=== PATIENT | female | born 1995 | race American Indian/Alaskan Native ===

== ENCOUNTER 2019-11-18 13:08 | Inpatient (IN) | payer MEDICAID ==
[2019-11-18] MEDS ORDERED: LACTATED RINGERS 1,000 ML ONE (14:09)
[2019-11-18] MEDS ORDERED: MINERAL OIL 30 ML ORAL LIQD PO PRN (15:05)
[2019-11-18] MEDS ORDERED: ePHEDrine SULFATE 50 MG/1 ML INJ IV PRN (15:05)
[2019-11-18] MEDS ORDERED: TERBUTALINE 1 MG/1 ML INJ SUB-Q PRN (15:05)
[2019-11-18] MEDS ORDERED: NALOXONE 0.4 MG/1 ML INJ IV PRN (15:05)
[2019-11-18] MEDS ORDERED: BUTORPHANOL 2 MG/1 ML INJ IV PRN ×2 (15:05)
[2019-11-18] MEDS ORDERED: LIDOCAINE (2%) 20 MG/1 ML VIAL 20 ML MDV INFILTRATI ONE (15:05)
[2019-11-18] MEDS ORDERED: TERBUTALINE 1 MG/1 ML INJ IVP PRN (15:05)
[2019-11-18] MEDS ORDERED: PROMETHAZINE 25 MG TAB PO PRN (15:05)
[2019-11-18] MEDS ORDERED: fentaNYL 100 MCG/2 ML INJ IV PRN (15:05)
[2019-11-18 15:24] LABS: Hematocrit 30.8 % (30.3-42.9); Hemoglobin 9.8 gm/dl (10.1-14.3); Mean Corpuscular HGB Conc 32 % (30-34); Mean Corpuscular Volume 80 fl (79-97); Platelet Count 183 K/mm3 (140-440); Red Blood Count 3.86 M/mm3 (3.65-5.03); Red Cell Distribution Width 14.5 % (13.2-15.2)
[2019-11-18 15:40] LABS: BUN/Creatinine Ratio 13; Blood Urea Nitrogen 8 mg/dL (7-17); Calcium 8.8 mg/dL (8.4-10.2); Hemolysis Index 26
[2019-11-18] MEDS ORDERED: MAGNESIUM SULFATE 4 GM/100 ML BAG IV ONE ×2 (15:46→18:09)
[2019-11-18] MEDS ORDERED: CALCIUM GLUCONATE 1000 MG/10 ML INJ IV ONE (15:46)
[2019-11-18] MEDS ORDERED: LACTATED RINGERS 1,000 ML IV SCH ×2 (16:00)
[2019-11-18] MEDS ORDERED: OXYTOCIN 20 UNIT/1000ML DRIP 20 UNITS/1,000 ML BAG IV SCH (16:00)
[2019-11-18] MEDS ORDERED: miSOPROStol 25 MCG TAB PO ONE (16:25)
--- NOTE | 2019-11-18 17:36 | History and Physical Report ---
History of Present Illness Date of examination: 11/18/19 Date of admission: 11/18/19 Chief complaint: High blood pressure History of present illness: Pt is a 24 yo at 38w0d EGA who presents from [facility] for elevated BP in the office. She reports positive movement, nausea last night, and denies LOF, bleeding, or contractions. She also denies CONDE, scotomata, RUQ pain. She has received care with [facility]. course has been complicated by obesity, HSV-2 with valtrex suppressive therapy, palpitations, pelvic mass with planned surgery , and trichomonas with negative test of cure. She is GBS negative. Past History Past Medical History: other (ovarian cyst) Past Surgical History: no surgical history [employer] History: trichomonas (negative test of cure this ) Family/Genetic History: diabetes Social history: no significant social history - Obstetrical History Expected Date of Delivery: 12/02/19 Actual Gestation: 38 Week(s) 0 Day(s) : 1 Para: 0 Number of Living Children: 0 Medications and Allergies Allergies Allergy/AdvReac Type Severity Reaction Status Date / Time No Known Allergies Allergy Unverified 11/18/19 14:05 Home Medications Medication Instructions Recorded Confirmed Last Taken Type No Known Home Medications [No 11/18/19 11/18/19 Unknown History Reported Home Medications] Active Meds: Active Medications Butorphanol Tartrate (Stadol) 1 mg IV Q2H PRN PRN Reason: Pain, Moderate(4-6) LABOR PAIN Butorphanol Tartrate (Stadol) 2 mg IV Q2H PRN PRN Reason: Pain , Severe (7-10) Ephedrine Sulfate (Ephedrine Sulfate) 10 mg IV Q2M PRN PRN Reason: Hypotension Fentanyl (Sublimaze) 100 mcg IV Q2H PRN PRN Reason: Pain,Severe (7-10) LABOR PAIN Hydralazine HCl (Apresoline) 5 mg IV Q30MIN PRN PRN Reason: HTN SYS>170 OR JOMAR>110 Oxytocin/Sodium Chloride (Pitocin/Ns 20 Unit/1000ml Drip) 20 units in 1,000 mls @ 125 mls/hr IV DIRECT IAN Lactated Ringer's (Lactated Ringers) 1,000 mls @ 125 mls/hr IV DIRECT IAN Magnesium Sulfate (Magnesium Sulfate 40gm/1000ml) 40 gm in 1,000 mls @ 50 mls/hr IV DIRECT IAN Mineral Oil (Mineral Oil) 30 ml PO QHS PRN PRN Reason: Constipation Naloxone HCl (Naloxone) 0.1 mg IV Q2MIN PRN PRN Reason: Res Rate </= 8 or 02 SAT < 92% Ondansetron HCl (Zofran) 4 mg IV Q8H PRN PRN Reason: Nausea And Vomiting Promethazine HCl (Phenergan) 25 mg PO Q6H PRN PRN Reason: Nausea And Vomiting Terbutaline Sulfate (Brethine) 0.25 mg SUB-Q ONCE PRN PRN Reason: Hyperstimulation/Hypertonicity Terbutaline Sulfate (Brethine) 0.25 mg IVP ONCE PRN PRN Reason: Hyperstimulation/Hypertonicity Review of Systems Genitourinary: no vaginal bleeding, no leakage of fluid, no genital sores, no contractions - Vital Signs Vital signs: Vital Signs Pulse BP 106 H 139/75 11/18/19 13:53 11/18/19 13:53 Temp Pulse Resp BP Pulse Ox 98.3 F 87 20 174/102 99 11/18/19 14:06 11/18/19 17:30 11/18/19 14:06 11/18/19 17:23 11/18/19 17:30 - Physical Exam Lungs: Positive: Normal air movement Abdomen: Positive: soft Uterus: Positive: enlarged (gravid) - Obstetrical FHR: category 1 Uterine Contraction Monitor Mode: External Cervical Dilatation: 2.5 (per RN) Cervical Effacement Percentage: 50 station: -3 Results Result Diagrams: 11/18/19 14:30 11/18/19 14:30 Abnormal lab results 11/18/19 11/18/19 Range/Units 14:30 14:30 Hgb 9.8 L (10.1-14.3) gm/dl MCH 25 L (28-32) pg Creatinine 0.6 L (0.7-1.2) mg/dL All other labs normal. Assessment and Plan A: 24 yo at 38w0d EGA Preeclampsia with severe features Pelvic mass, cleared for vaginal by [facility] HSV-2 without lesion or prodrome Trichomonas this with negative test of cure GBS negative Membranes intact Palpitations P: Admit to L&D Initiate IOL- Cytotec Magnesium sulfate Rescue Hydralazine PRN EKG Anticipate
[2019-11-18] MEDS: hydrALAZINE 20 MG/1 ML INJ IV PRN ×2 (17:57→18:23)
[2019-11-18] MEDS: MAGNESIUM SULFATE 40GM/1000ML 40 GM/1,000 ML BAG IV SCH (18:46)
[2019-11-18] MEDS: LACTATED RINGERS 1,000 ML IV SCH (19:09)
[2019-11-18] MEDS: ONDANSETRON 4 MG/2 ML INJ IV PRN (23:02)
[2019-11-19] MEDS ORDERED: ePHEDrine SULFATE 50 MG/1 ML INJ IV PRN (01:29)
[2019-11-19] MEDS ORDERED: NALOXONE 2 MG/2 ML INJ IV PRN (01:29)
[2019-11-19] MEDS: LACTATED RINGERS 1,000 ML IV SCH (01:36)
--- NOTE | 2019-11-19 01:46 | Anesthesia Consultation ---
Anesthesia Consult and Med Hx Date of service: 11/19/19 - Airway Anesthetic Teeth Evaluation: Good ROM Head & Neck: Adequate Mental/Hyoid Distance: Adequate Mallampati Class: Class II Intubation Access Assessment: Probably Good - Pulmonary Exam CTA: Yes - Cardiac Exam Cardiac Exam: RRR - Pre-Operative Health Status ASA Pre-Surgery Classification: ASA3 Proposed Anesthetic Plan: Epidural - Pulmonary Hx Asthma: No COPD: No Hx Pneumonia: No - Cardiovascular System Hx Hypertension: Yes - Central Nervous System Hx Seizures: No Hx Psychiatric Problems: No - Endocrine Hx Renal Disease: No Hx End Stage Renal Disease: No Hx Hypothyroidism: No Hx Hyperthyroidism: No - Hematic Hx Anemia: No Hx Sickle Cell Disease: No - Other Systems Hx Alcohol Use: Yes (RARELY) Hx Obesity: Yes
--- NOTE | 2019-11-19 01:47 | Progress Note ---
Labor Epidural - Labor Epidural Start Time: 01:30 Stop Time: :40 Performed by:: YIFAN HICKEY Procedure: Patient is requesting epidural for labor pain. H&P, and labs reviewed. Procedure explained, questions answered, consent obtained. Patient in sitting position with blood pressure cuff and pulse ox on and working. Timeout performed immediately before start of procedure. Sterile betadine prep/drape. 3 mL 1% lidocaine skin wheal at L[3]-L[4]. 18-gauge Touhy epidural needle advanced to [id number] with saline at 9 cm. 27-gauge spinal needle advanced until clear, free-flowing CSF. Intrathecal dexmedetomidine [5] mcg administered and needle removed. Epidural catheter advanced to 15 cm, negative aspiration for blood and csf, negative test dose 3 ml 1.5% lidocaine with epinephrine. Sterile steri-strips and tegaderm applied, followed by tape reinforcement. Patient tolerated procedure well.
[2019-11-19] MEDS: fentaNYL-BUPIV 2 MCG/ML-0.125% 200 MCG/100 ML BAG EPIDURAL SCH ×2 (02:18→09:46)
[2019-11-19] MEDS ORDERED: OXYTOCIN DRIP 30 UNITS/500 ML BAG IV SCH (08:00)
[2019-11-19] MEDS ORDERED: hydrOXYzine PAMOATE 25 MG CAP PO PRN (08:28)
--- NOTE | 2019-11-19 08:33 | Ultrasound Report ---
US OB limited INDICATION / CLINICAL INFORMATION: Presentation check. COMPARISON: None available. FINDINGS: Transabdominal imaging was performed. The alignment is cephalic. heart rate is 129. IMPRESSION: 1. lie is cephalic. Signer Name: Nate Robles MD Signed: 11/19/2019 8:28 AM Workstation Name: [id number]
--- NOTE | 2019-11-19 08:43 | Progress Note ---
Assessment and Plan A: 24 yo at 38w1d EGA Preeclampsia with severe features Pelvic mass, cleared for vaginal by [facility] HSV-2 without lesion or prodrome Trichomonas this with negative test of cure GBS negative Membranes intact Palpitations Cephalic by ultrasound P: Continue IOL, initiate Pitocin continue Magnesium sulfate Rescue Hydralazine PRN Anticipate Subjective - Subjective Date of service: 11/19/19 Principal diagnosis: Preeclampsia with severe features, IUP at term Interval history: HD2 of IOL. Pt is on Mag sulfate, s/p Cytotec, has epidural anesthesia. Patient reports: no loss of fluid, no vaginal bleeding Objective - Vital Signs Vital Signs: Vital Signs - 12hr 11/18/19 11/18/19 11/18/19 20:42 20:47 20:52 Temperature Pulse Rate 104 H 106 H 108 H Respiratory Rate Blood Pressure O2 Sat by Pulse 100 99 98 Oximetry 11/18/19 11/18/19 11/18/19 20:54 20:58 21:03 Temperature Pulse Rate 107 H 108 H 107 H Respiratory Rate Blood Pressure 154/83 O2 Sat by Pulse 98 100 Oximetry 11/18/19 11/18/19 11/18/19 21:08 21:13 21:18 Temperature Pulse Rate 109 H 104 H 108 H Respiratory Rate Blood Pressure O2 Sat by Pulse 99 100 99 Oximetry 11/18/19 11/18/19 11/18/19 21:21 21:23 21:28 Temperature Pulse Rate 112 H 107 H 111 H Respiratory Rate Blood Pressure 172/92 161/84 O2 Sat by Pulse 91 98 96 Oximetry 11/18/19 11/18/19 11/18/19 21:33 21:34 21:38 Temperature Pulse Rate 104 H 105 H Respiratory Rate Blood Pressure O2 Sat by Pulse 100 90 98 Oximetry 11/18/19 11/18/19 11/18/19 21:43 21:47 21:48 Temperature Pulse Rate 101 H 120 H 108 H Respiratory Rate Blood Pressure O2 Sat by Pulse 98 89 99 Oximetry 11/18/19 11/18/19 11/18/19 21:51 21:53 21:58 Temperature Pulse Rate 105 H 104 H 99 H Respiratory Rate Blood Pressure 143/87 O2 Sat by Pulse 100 98 Oximetry 11/18/19 11/18/19 11/18/19 22:04 22:09 22:14 Temperature Pulse Rate 119 H 106 H 102 H Respiratory Rate Blood Pressure O2 Sat by Pulse 98 98 99 Oximetry 11/18/19 11/18/19 11/18/19 22:19 22:22 22:24 Temperature Pulse Rate 102 H 98 H 101 H Respiratory Rate Blood Pressure 158/79 O2 Sat by Pulse 95 98 Oximetry 11/18/19 11/18/19 11/18/19 22:29 22:34 22:39 Temperature Pulse Rate 98 H 102 H 96 H Respiratory Rate Blood Pressure O2 Sat by Pulse 98 99 100 Oximetry 11/18/19 11/18/19 11/18/19 22:44 22:49 22:53 Temperature Pulse Rate 95 H 101 H 93 H Respiratory Rate Blood Pressure 141/77 O2 Sat by Pulse 99 100 Oximetry 11/18/19 11/18/19 11/18/19 22:54 22:59 23:04 Temperature Pulse Rate 104 H 97 H 101 H Respiratory Rate Blood Pressure O2 Sat by Pulse 100 99 97 Oximetry 11/18/19 11/18/19 11/18/19 23:09 23:11 23:14 Temperature Pulse Rate 103 H 107 H 103 H Respiratory Rate Blood Pressure O2 Sat by Pulse 96 91 92 Oximetry 11/18/19 11/18/19 11/18/19 23:16 23:19 23:22 Temperature Pulse Rate 109 H 102 H 101 H Respiratory Rate Blood Pressure 140/76 O2 Sat by Pulse 94 96 Oximetry 11/18/19 11/18/19 11/18/19 23:24 23:29 23:34 Temperature Pulse Rate 101 H 103 H 101 H Respiratory Rate Blood Pressure O2 Sat by Pulse 96 95 96 Oximetry 11/18/19 11/18/19 11/18/19 23:39 23:44 23:49 Temperature Pulse Rate 105 H 101 H 104 H Respiratory Rate Blood Pressure O2 Sat by Pulse 98 97 98 Oximetry 11/18/19 11/18/19 11/18/19 23:51 23:54 23:59 Temperature Pulse Rate 104 H 109 H 108 H Respiratory Rate Blood Pressure 140/71 O2 Sat by Pulse 98 98 Oximetry 11/19/19 11/19/19 11/19/19 00:04 00:09 00:14 Temperature Pulse Rate 93 H 106 H 100 H Respiratory Rate Blood Pressure O2 Sat by Pulse 99 97 96 Oximetry 11/19/19 11/19/19 11/19/19 00:19 00:21 00:24 Temperature Pulse Rate 98 H 96 H 97 H Respiratory Rate Blood Pressure 138/71 O2 Sat by Pulse 97 97 Oximetry 11/19/19 11/19/19 11/19/19 00:29 00:34 00:40 Temperature Pulse Rate 99 H 98 H 110 H Respiratory Rate Blood Pressure O2 Sat by Pulse 97 96 99 Oximetry 11/19/19 11/19/19 11/19/19 00:45 00:50 00:51 Temperature Pulse Rate 101 H 100 H 100 H Respiratory Rate Blood Pressure 133/75 O2 Sat by Pulse 97 96 Oximetry 11/19/19 11/19/19 11/19/19 00:55 01:00 01:05 Temperature 98.1 F Pulse Rate 103 H 101 H 101 H Respiratory 18 Rate Blood Pressure O2 Sat by Pulse 99 96 96 Oximetry 11/19/19 11/19/19 11/19/19 01:10 01:15 01:20 Temperature Pulse Rate 103 H 97 H 110 H Respiratory Rate Blood Pressure O2 Sat by Pulse 97 98 96 Oximetry 11/19/19 11/19/19 11/19/19 01:22 01:25 01:30 Temperature Pulse Rate 105 H 109 H 127 H Respiratory Rate Blood Pressure 162/77 O2 Sat by Pulse 98 99 Oximetry 11/19/19 11/19/19 11/19/19 01:35 01:38 01:40 Temperature Pulse Rate 105 H 76 71 Respiratory Rate Blood Pressure 173/72 174/73 O2 Sat by Pulse 97 98 Oximetry 11/19/19 11/19/19 11/19/19 01:42 01:44 01:45 Temperature Pulse Rate 83 89 Respiratory Rate Blood Pressure 184/77 171/68 O2 Sat by Pulse 98 Oximetry 11/19/19 11/19/19 11/19/19 01:46 01:48 01:50 Temperature Pulse Rate 88 85 95 H Respiratory Rate Blood Pressure 161/66 148/64 160/67 O2 Sat by Pulse 97 Oximetry 11/19/19 11/19/19 11/19/19 01:52 01:55 02:00 Temperature Pulse Rate 81 140 H 79 Respiratory Rate Blood Pressure 101/55 O2 Sat by Pulse 94 95 99 Oximetry 11/19/19 11/19/19 11/19/19 02:05 02:08 02:10 Temperature Pulse Rate 77 85 83 Respiratory Rate Blood Pressure 133/58 O2 Sat by Pulse 97 100 Oximetry 11/19/19 11/19/19 11/19/19 02:15 02:18 02:20 Temperature Pulse Rate 85 74 Respiratory 18 Rate Blood Pressure O2 Sat by Pulse 100 100 Oximetry 11/19/19 11/19/19 11/19/19 02:23 02:25 02:30 Temperature Pulse Rate 78 83 82 Respiratory Rate Blood Pressure 142/63 O2 Sat by Pulse 100 100 Oximetry 11/19/19 11/19/19 11/19/19 02:35 02:37 02:40 Temperature Pulse Rate 80 76 81 Respiratory Rate Blood Pressure 132/61 O2 Sat by Pulse 100 99 Oximetry 11/19/19 11/19/19 11/19/19 02:45 02:50 02:53 Temperature Pulse Rate 77 75 82 Respiratory Rate Blood Pressure 139/60 O2 Sat by Pulse 99 100 Oximetry 11/19/19 11/19/19 11/19/19 02:55 03:00 03:05 Temperature Pulse Rate 84 86 94 H Respiratory Rate Blood Pressure O2 Sat by Pulse 100 100 100 Oximetry 11/19/19 11/19/19 11/19/19 03:08 03:10 03:15 Temperature Pulse Rate 81 82 95 H Respiratory Rate Blood Pressure 160/77 O2 Sat by Pulse 100 100 Oximetry 11/19/19 11/19/19 11/19/19 03:20 03:23 03:25 Temperature Pulse Rate 83 89 89 Respiratory Rate Blood Pressure 140/84 O2 Sat by Pulse 100 100 Oximetry 11/19/19 11/19/19 11/19/19 03:30 03:35 03:38 Temperature Pulse Rate 91 H 83 85 Respiratory Rate Blood Pressure 144/69 O2 Sat by Pulse 100 98 Oximetry 11/19/19 11/19/19 11/19/19 03:40 03:45 03:50 Temperature Pulse Rate 90 92 H 90 Respiratory Rate Blood Pressure O2 Sat by Pulse 99 99 99 Oximetry 11/19/19 11/19/19 11/19/19 03:53 03:55 04:00 Temperature Pulse Rate 96 H 94 H 107 H Respiratory Rate Blood Pressure O2 Sat by Pulse 93 99 100 Oximetry 11/19/19 11/19/19 11/19/19 04:05 04:06 04:11 Temperature 98.3 F Pulse Rate 109 H 100 H 104 H Respiratory 18 Rate Blood Pressure 123/56 O2 Sat by Pulse 95 99 Oximetry 11/19/19 11/19/19 11/19/19 04:14 04:16 04:21 Temperature Pulse Rate 112 H 109 H 105 H Respiratory Rate Blood Pressure O2 Sat by Pulse 94 99 98 Oximetry 11/19/19 11/19/19 11/19/19 04:26 04:33 04:38 Temperature Pulse Rate 107 H 114 H 110 H Respiratory Rate Blood Pressure 131/74 O2 Sat by Pulse 98 96 97 Oximetry 11/19/19 11/19/19 11/19/19 04:39 04:43 04:48 Temperature Pulse Rate 110 H 112 H 100 H Respiratory Rate Blood Pressure O2 Sat by Pulse 94 97 97 Oximetry 11/19/19 11/19/19 11/19/19 04:52 04:53 04:58 Temperature Pulse Rate 111 H 112 H 100 H Respiratory Rate Blood Pressure 123/66 O2 Sat by Pulse 98 98 Oximetry 11/19/19 11/19/19 11/19/19 05:01 05:03 05:08 Temperature Pulse Rate 101 H 102 H 100 H Respiratory Rate Blood Pressure O2 Sat by Pulse 89 97 97 Oximetry 11/19/19 11/19/19 11/19/19 05:09 05:13 05:18 Temperature Pulse Rate 99 H 99 H 101 H Respiratory Rate Blood Pressure 125/60 O2 Sat by Pulse 97 97 Oximetry 11/19/19 11/19/19 11/19/19 05:23 05:28 05:33 Temperature Pulse Rate 100 H 101 H 102 H Respiratory Rate Blood Pressure 128/69 O2 Sat by Pulse 97 97 97 Oximetry 11/19/19 11/19/19 11/19/19 05:37 05:38 05:43 Temperature Pulse Rate 108 H 97 H 100 H Respiratory Rate Blood Pressure 131/70 O2 Sat by Pulse 97 96 Oximetry 11/19/19 11/19/19 11/19/19 05:48 05:52 05:53 Temperature Pulse Rate 100 H 102 H 106 H Respiratory Rate Blood Pressure 124/68 O2 Sat by Pulse 96 98 Oximetry 11/19/19 11/19/19 11/19/19 05:58 06:03 06:08 Temperature Pulse Rate 121 H 118 H 130 H Respiratory Rate Blood Pressure O2 Sat by Pulse 98 98 98 Oximetry 11/19/19 11/19/19 11/19/19 06:19 06:22 06:24 Temperature Pulse Rate 120 H 115 H 118 H Respiratory Rate Blood Pressure 138/71 O2 Sat by Pulse 98 97 Oximetry 11/19/19 11/19/19 11/19/19 06:29 06:34 06:37 Temperature Pulse Rate 106 H 102 H 100 H Respiratory Rate Blood Pressure 127/66 O2 Sat by Pulse 97 98 Oximetry 11/19/19 11/19/19 11/19/19 06:39 06:44 06:49 Temperature Pulse Rate 99 H 97 H 106 H Respiratory Rate Blood Pressure O2 Sat by Pulse 98 97 97 Oximetry 11/19/19 11/19/19 11/19/19 06:53 06:54 06:59 Temperature Pulse Rate 108 H 112 H 123 H Respiratory Rate Blood Pressure 133/70 O2 Sat by Pulse 97 99 Oximetry 11/19/19 11/19/19 11/19/19 07:04 07:07 07:09 Temperature Pulse Rate 128 H 110 H 113 H Respiratory Rate Blood Pressure 134/68 O2 Sat by Pulse 99 99 Oximetry 11/19/19 11/19/19 11/19/19 07:14 07:19 07:23 Temperature Pulse Rate 127 H 128 H 111 H Respiratory Rate Blood Pressure 135/77 O2 Sat by Pulse 98 99 Oximetry 11/19/19 11/19/19 11/19/19 07:24 07:29 07:34 Temperature Pulse Rate 122 H 121 H 109 H Respiratory Rate Blood Pressure O2 Sat by Pulse 98 99 98 Oximetry 11/19/19 11/19/19 11/19/19 07:38 07:53 08:07 Temperature Pulse Rate 126 H 101 H 97 H Respiratory Rate Blood Pressure 125/59 133/80 132/75 O2 Sat by Pulse Oximetry 11/19/19 11/19/19 08:22 08:38 Temperature Pulse Rate 99 H 103 H Respiratory Rate Blood Pressure 133/77 145/92 O2 Sat by Pulse Oximetry - Exam FHR: category 1 Uterine Contraction Monitor Mode: External Cervical Dilatation: 4.5 Cervical Effacement Percentage: 80 station: 0 Uterine Contraction Frequency (min): 3-4 Uterine Tone Measurement Phase: Contraction Uterine Contraction Intensity: Moderate - Labs Labs: Abnormal Labs 11/18/19 11/18/19 11/19/19 14:30 14:30 00:39 Hgb 9.8 L MCH 25 L Creatinine 0.6 L Magnesium 4.80 H 11/19/19 06:12 Hgb MCH Creatinine Magnesium 6.40 H Laboratory Results - last 24 hr 11/18/19 11/18/19 11/18/19 14:30 14:30 14:30 WBC 7.4 RBC 3.86 Hgb 9.8 L Hct 30.8 MCV 80 MCH 25 L MCHC 32 RDW 14.5 Plt Count 183 Sodium 138 Potassium 4.2 Chloride 103.8 Carbon Dioxide 24 Anion Gap 14 BUN 8 Creatinine 0.6 L Estimated GFR > 60 BUN/Creatinine Ratio 13 Glucose 97 Uric Acid Calcium 8.8 Magnesium Blood Type A POSITIVE Antibody Screen Negative 11/18/19 11/19/19 11/19/19 14:30 00:39 06:12 WBC RBC Hgb Hct MCV MCH MCHC RDW Plt Count Sodium Potassium Chloride Carbon Dioxide Anion Gap BUN Creatinine Estimated GFR BUN/Creatinine Ratio Glucose Uric Acid 5.3 Calcium Magnesium 4.80 H 6.40 H Blood Type Antibody Screen
[2019-11-19] MEDS: ONDANSETRON 4 MG/2 ML INJ IV PRN (12:38)
--- NOTE | 2019-11-19 13:01 | Event Note ---
Date: 11/19/19 Pt comfortable with epidural. SVE /-1. IUPC and FSE placed, pt tolerated well, FHT category 1. Increase Pitocin by 4mU/min q30min until adequate MVUs. Closely monitor clinical status.
[2019-11-19] MEDS: MAGNESIUM SULFATE 40GM/1000ML 40 GM/1,000 ML BAG IV SCH (14:38)
[2019-11-19] MEDS ORDERED: FAMOTIDINE 20 MG/2 ML INJ IV ONE (16:47)
[2019-11-19] MEDS ORDERED: BICITRA ORAL LIQD 30ML PO ONE (16:47)
[2019-11-19] MEDS ORDERED: METOCLOPRAMIDE 10 MG/2 ML INJ IV ONE (16:47)
[2019-11-19] MEDS ORDERED: LACTATED RINGERS 1,000 ML IV SCH (17:00)
[2019-11-19] MEDS ORDERED: OXYTOCIN 20 UNIT/1000ML DRIP 20 UNITS/1,000 ML BAG IV SCH ×2 (17:00→18:00)
[2019-11-19] MEDS ORDERED: KETOROLAC 30 MG/1 ML INJ ONE (17:23)
[2019-11-19] MEDS ORDERED: SODIUM BICARB 8.4% 50 MEQ/50 ML VIAL IV ONE (17:24)
[2019-11-19] MEDS ORDERED: LIDOCAINE 2%/EPINEPHRINE 1:200,000 VIAL (20 ML) INFILTRATI ONE (17:24)
[2019-11-19] MEDS ORDERED: DEXMEDETOMIDINE 200 MCG/2 ML VIAL IV ONE (17:27)
[2019-11-19] MEDS ORDERED: BUPIVACAINE/PF (0.5%) 5 MG/1 ML 30 ML VIAL INFILTRATI ONE (17:27)
--- NOTE | 2019-11-19 17:33 | Procedure Note ---
OB Delivery Note - Delivery Date of Delivery: 11/19/19 Surgeon: SOHEILA CRUZ Estimated blood loss: other (800 mL) - Section Preop diagnosis: arrest of dilation Postop diagnosis: same section procedure: section, primary low transverse Disposition: PACU Complications: none - Infant A at 1 minute: 9 at 5 minutes: 9 Infant Gender: Male (Weight 6 pounds 8 ounces)
--- NOTE | 2019-11-19 17:33 | Event Note ---
Date: 11/19/19 Patient is being induced for severe preeclampsia. Her intrapartum course is complicated by arrest of dilatation at 6 cm despite adequate contractility. The patient is been counseled for primary delivery.
[2019-11-19] MEDS ORDERED: WITCH HAZEL/ GLYCERIN PAD TP PRN (17:34)
[2019-11-19] MEDS ORDERED: ACETAMINOPHEN 325 MG TAB PO PRN (17:34)
[2019-11-19] MEDS ORDERED: oxyCODONE /ACETAMINOPHEN 5-325MG TAB PO PRN (17:34)
[2019-11-19] MEDS ORDERED: LANOLIN/ZINC/DIMETHICONE (LANSINOH) 7 GM TP PRN (17:34)
[2019-11-19] MEDS ORDERED: NALOXONE 0.4 MG/1 ML INJ IV PRN (17:34)
[2019-11-19] MEDS ORDERED: SIMETHICONE 80 MG CHEW TAB PO PRN (17:34)
--- NOTE | 2019-11-19 17:34 | Operative Report ---
Operative Report Operative Report: Date of surgery: November 19, 2019 Preoperative diagnosis: at 38+1 weeks; severe preeclampsia; arrest of dilatation Postoperative diagnosis: Same as above Procedure: Primary low transverse delivery Surgeon: Jacquelyn Rahman M.D. Anesthesia: Regional Estimated blood loss: 800 mL Findings: Liveborn male infant with Apgars of 9 and 9 weight 6 pounds 8 ounces Indications: 24-year-old G1, P0 at 38+1 weeks being induced for severe preeclampsia. Her intrapartum course was complicated by arrest of dilatation. Procedure: The patient was taken to the operating room and given regional anesthesia without complication. She was prepped and draped in a normal sterile fashion. A Pfannenstiel skin incision was made down to layer the fascia which was nicked in the midline extended laterally with the Bovie cautery. The superior aspect of the rectus fascia was grasped with Emery clamps x2 and the rectus muscles off sharply. This was done in inferior fashion as well. The rectus muscle midline and peritoneum entered bluntly. An Xavier retractor was then inserted. A bladder blade was placed. The vesicouterine peritoneum was then entered sharply with Metzenbaum scissors. A bladder flap was created digitally. A low transverse uterine incision was then made and extended digitally. There was clear fluid upon entry into the uterine cavity. The head was delivered through the incision with fundal pressure at 1810. The cord was clamped and cut x2 and was passed off to pediatrics. The placenta was then manually extracted at 1811. The uterus was then exteriorized and cleared of clots and debris. The uterine incision was then closed in a running locked fashion with 0 Vicryl additional imbricating stitch was applied for 2 layer closure. The serosa was then reapproximated with 3-0 Vicryl. The posterior cul-de-sac was then copiously irrigated. The uterus was replaced back into the abdomen and pelvis were the gutters were then irrigated. The Xavier retractor was then removed. The peritoneum was then reapproximated with 3-0 Vicryl incorporating the rectus muscle. The fascia was then closed with 0 Vicryl in a running fashion. The skin was then reapproximated with 3-0 Monocryl on a Carlos needle subcuticular fashion. Steri-Strips to place across the incision and a Crede procedures performed at the end of the surgery. A pressure dressing was applied to the incision. The surgery productive of a liveborn male infant with Apgars of 9 and 9 weight 6 pounds 8 ounces. The patient was taken to the recovery room in stable condition. All sponge laps and needle counts correct x2.
[2019-11-19] MEDS ORDERED: ceFAZolin/STERILE WATER 2 GM/20 ML SYRINGE IV ONE (17:50)
[2019-11-19] MEDS ORDERED: WATER FOR IRRIG STERILE 1,500 ML BOTTLE IR ONE (17:59)
[2019-11-19] MEDS ORDERED: SODIUM CHLORIDE 0.9% IRR 1,500 ML BOTTLE IR ONE (17:59)
[2019-11-19] MEDS ORDERED: ceFAZolin/STERILE WATER 2 GM/20 ML SYRINGE IV NR (18:00)
[2019-11-19] MEDS ORDERED: OXYTOCIN 10 UNIT/1 ML INJ ONE (18:48)
--- NOTE | 2019-11-19 19:14 | Post Anesthesia Evaluation ---
- Post Anesthesia Evaluation Patient Participated: Yes Airway Patent: Yes Stable Respiratory Function: Yes Nausea/Vomiting: No Temp > 96.8F: Yes Pain Manageable: Yes Adequeate Hydration: Yes Anesthesia Complications: No Block Receding Appropriately: Yes
[2019-11-19] MEDS: hydrALAZINE 20 MG/1 ML INJ IV PRN (22:29)
[2019-11-20 00:26] LABS: Basophils # (Auto) 0.1 K/mm3 (0.0-0.1); Basophils % (Auto) 0.3 % (0.0-1.8); Hematocrit 28.9 % (30.3-42.9); Hemoglobin 9.1 gm/dl (10.1-14.3); Lymphocytes # (Auto) 1.6 K/mm3 (1.2-5.4); Lymphocytes % (Auto) 8.5 % (13.4-35.0); Mean Corpuscular HGB Conc 32 % (30-34); Mean Corpuscular Volume 81 fl (79-97); Monocytes % (Auto) 5.3 % (0.0-7.3); Platelet Count 187 K/mm3 (140-440); Red Blood Count 3.56 M/mm3 (3.65-5.03); Red Cell Distribution Width 14.9 % (13.2-15.2)
[2019-11-20] MEDS: MORPHINE 4 MG/1 ML INJ IV PRN ×2 (00:58→07:47)
[2019-11-20] MEDS: KETOROLAC 30 MG/1 ML INJ IV PRN ×3 (03:56→17:47)
[2019-11-20] MEDS: hydrALAZINE 20 MG/1 ML INJ IV PRN (07:54)
--- NOTE | 2019-11-20 08:15 | Progress Note ---
Assessment and Plan A: POD#1 s/p primary at term Severe Preeclampsia receiving Magnesium sulfate for Seizure Prophylaxis Morbid Obesity Acute on Chronic Anemia P: Complete 24 hours of magnesium sulfate Increase Labetalol to 400 mg BID beginning tomorrow morning Closely monitor clinical status Subjective - Subjective Date of service: 11/20/19 Principal diagnosis: Preeclampsia with severe features, IUP at term Interval history: Pt doing well, but feels magensium sulfate is worsening her anxiety. Not passing flatus yet. Patient reports: pain well controlled, no voiding normally (schmidt in place ), no flatus, no bowel movement, no ambulating normally (SCDs in place ) [place]: doing well Objective - Vital Signs Latest vital signs: Vital Signs Temp Pulse Resp BP BP Pulse Ox 11/20/19 08:12 109 H 99 11/20/19 08:07 106 H 100 11/20/19 08:04 103 H 162/87 11/20/19 08:02 112 H 98 11/20/19 07:57 114 H 100 11/20/19 07:54 91 H 170/99 11/20/19 07:52 92 H 99 11/20/19 07:49 96 H 170/99 11/20/19 07:47 92 H 18 99 11/20/19 07:42 101 H 100 11/20/19 07:38 100 H 71 L 11/20/19 07:37 98 H 98 11/20/19 07:34 99 H 174/101 11/20/19 07:32 108 H 97 11/20/19 07:27 98.2 F 95 H 18 158/98 98 11/20/19 07:25 91 H 158/98 11/20/19 07:22 94 H 98 11/20/19 07:20 95 H 172/95 11/20/19 07:17 89 98 11/20/19 07:12 98 H 98 11/20/19 07:11 98 H 85 11/20/19 07:07 85 99 11/20/19 07:05 88 146/79 11/20/19 07:02 84 98 11/20/19 06:57 86 98 11/20/19 06:52 88 98 11/20/19 06:51 88 128/112 11/20/19 06:47 89 97 11/20/19 06:42 90 97 07/10/20 06:37 88 99 11/20/19 06:34 100 H 133/87 11/20/19 06:31 85 96 11/20/19 06:26 87 96 11/20/19 06:21 90 92 11/20/19 06:20 86 20 98 11/20/19 06:19 89 134/82 11/20/19 06:16 94 H 98 11/20/19 06:10 88 99 11/20/19 06:05 86 100 11/20/19 06:04 96 H 135/82 11/20/19 06:00 85 99 11/20/19 05:55 88 99 11/20/19 05:50 88 99 11/20/19 05:49 90 130/73 11/20/19 05:45 88 99 11/20/19 05:40 88 100 11/20/19 05:37 20 100 11/20/19 05:35 92 H 100 11/20/19 05:34 90 128/69 11/20/19 05:30 90 99 11/20/19 05:25 90 99 11/20/19 05:20 89 100 11/20/19 05:19 96 H 131/69 11/20/19 05:15 92 H 99 11/20/19 05:10 91 H 99 11/20/19 05:05 88 99 11/20/19 05:04 91 H 127/65 11/20/19 05:00 89 99 11/20/19 04:55 87 99 11/20/19 04:50 93 H 100 11/20/19 04:49 96 H 130/81 11/20/19 04:45 90 100 11/20/19 04:40 91 H 100 11/20/19 04:35 91 H 99 11/20/19 04:34 91 H 125/71 11/20/19 04:30 89 20 100 11/20/19 04:25 90 98 11/20/19 04:20 89 98 11/20/19 04:19 92 H 126/76 11/20/19 04:15 90 100 11/20/19 04:10 91 H 100 11/20/19 04:05 90 100 11/20/19 04:04 91 H 123/75 11/20/19 04:00 89 97 11/20/19 03:58 71 76 L 11/20/19 03:55 95 H 100 11/20/19 03:50 89 100 11/20/19 03:49 90 128/70 11/20/19 03:45 90 18 100 11/20/19 03:40 91 H 100 11/20/19 03:35 89 100 11/20/19 03:34 90 125/76 11/20/19 03:30 90 100 11/20/19 03:25 90 100 11/20/19 03:20 99 H 100 11/20/19 03:19 87 122/68 11/20/19 03:15 88 100 11/20/19 03:10 88 100 11/20/19 03:05 86 100 11/20/19 03:04 87 129/72 11/20/19 03:00 90 99 11/20/19 02:55 90 97 11/20/19 02:50 92 H 141/72 98 11/20/19 02:45 92 H 99 11/20/19 02:40 107 H 99 11/20/19 02:38 65 L 11/20/19 02:35 100 H 80 L 11/20/19 02:34 104 H 156/94 11/20/19 02:33 62 L 11/20/19 02:30 107 H 95 11/20/19 02:26 103 H 92 11/20/19 02:25 85 98 11/20/19 02:20 86 100 11/20/19 02:19 92 H 151/87 11/20/19 02:15 90 100 11/20/19 02:10 91 H 100 11/20/19 02:05 92 H 20 100 11/20/19 02:04 88 149/83 11/20/19 02:00 91 H 100 11/20/19 01:55 92 H 100 11/20/19 01:50 91 H 100 11/20/19 01:49 90 149/86 11/20/19 01:45 91 H 100 11/20/19 01:40 91 H 100 11/20/19 01:35 90 100 11/20/19 01:34 88 147/80 11/20/19 01:30 91 H 99 11/20/19 01:25 89 99 11/20/19 01:20 92 H 99 11/20/19 01:19 89 151/86 11/20/19 01:15 91 H 99 11/20/19 01:10 94 H 98 11/20/19 01:05 94 H 163/86 98 11/20/19 01:00 104 H 98 11/20/19 00:55 104 H 98 11/20/19 00:53 93 H 83 L 11/20/19 00:50 112 H 100 11/20/19 00:46 104 H 182/97 11/20/19 00:44 93 H 99 11/20/19 00:39 89 100 11/20/19 00:35 94 H 182/97 11/20/19 00:34 91 H 100 11/20/19 00:29 98 H 100 11/20/19 00:24 98 H 99 11/20/19 00:20 97 H 163/87 11/20/19 00:19 99 H 98 11/20/19 00:15 18 98 11/20/19 00:14 98 H 99 11/20/19 00:09 98 H 99 11/20/19 00:04 103 H 98 11/20/19 00:02 101 H 168/87 11/19/19 23:59 106 H 99 11/19/19 23:57 98 H 170/91 11/19/19 23:54 101 H 98 11/19/19 23:48 88 100 11/19/19 23:47 96 H 158/92 11/19/19 23:43 102 H 99 11/19/19 23:42 96 H 152/87 11/19/19 23:38 100 H 99 11/19/19 23:37 100 H 165/92 11/19/19 23:35 18 98 11/19/19 23:33 39 L 86 11/19/19 23:32 101 H 157/88 11/19/19 23:31 107 H 94 11/19/19 23:28 104 H 100 11/19/19 23:27 99 H 171/83 11/19/19 23:23 103 H 100 11/19/19 23:22 105 H 175/84 11/19/19 23:20 115 H 184/100 11/19/19 23:18 121 H 98 11/19/19 23:16 125 H 194/106 11/19/19 23:13 129 H 100 11/19/19 23:08 119 H 100 11/19/19 23:06 122 H 194/106 11/19/19 23:03 119 H 98 11/19/19 23:01 116 H 184/102 11/19/19 22:58 116 H 99 11/19/19 22:56 116 H 192/92 87 11/19/19 22:53 113 H 100 11/19/19 22:51 110 H 171/112 11/19/19 22:48 113 H 99 11/19/19 22:46 107 H 164/95 11/19/19 22:44 105 H 181/100 11/19/19 22:43 111 H 172/98 100 11/19/19 22:41 103 H 184/101 11/19/19 22:38 101 H 100 11/19/19 22:36 100 H 182/117 11/19/19 22:33 107 H 99 11/19/19 22:30 112 H 86 11/19/19 22:29 105 H 177/10 11/19/19 22:28 107 H 100 11/19/19 22:26 98 H 177/108 11/19/19 22:23 88 91 11/19/19 22:21 110 H 93 11/19/19 22:18 98 H 98 11/19/19 22:16 83 175/87 81 L 11/19/19 22:15 18 100 11/19/19 22:13 82 100 11/19/19 22:08 79 100 11/19/19 22:03 81 100 11/19/19 21:58 78 100 11/19/19 21:53 82 100 11/19/19 21:48 82 100 11/19/19 21:45 81 142/97 11/19/19 21:43 84 100 11/19/19 21:38 81 100 11/19/19 21:33 84 100 11/19/19 21:30 20 100 11/19/19 21:28 87 100 11/19/19 21:23 91 H 98 11/19/19 21:18 85 99 11/19/19 21:16 96 H 168/89 69 L 11/19/19 21:13 77 95 11/19/19 21:11 76 94 11/19/19 21:08 77 95 11/19/19 21:03 76 95 11/19/19 20:58 76 95 11/19/19 20:53 77 96 11/19/19 20:48 78 96 07/09/20 20:43 78 96 11/19/19 20:40 18 98 11/19/19 20:38 81 98 11/19/19 20:33 80 98 11/19/19 20:30 97 H 18 133/79 99 11/19/19 20:29 82 133/79 11/19/19 20:28 84 93 11/19/19 20:08 97.5 F L 76 16 111/67 100 11/19/19 19:50 78 20 109/63 95 11/19/19 19:35 81 21 105/48 97 11/19/19 19:20 85 19 121/68 97 11/19/19 19:05 92 H 19 121/74 100 11/19/19 19:00 87 24 118/61 100 11/19/19 18:57 97.5 F L 94 H 14 102/58 100 11/19/19 16:58 106 H 100 11/19/19 16:53 109 H 99 11/19/19 16:48 99 H 100 11/19/19 16:43 99 H 100 11/19/19 16:38 105 H 100 11/19/19 16:37 96 H 136/81 11/19/19 16:33 95 H 100 11/19/19 16:28 96 H 100 11/19/19 16:23 98 H 137/77 100 11/19/19 16:18 105 H 99 11/19/19 16:13 104 H 98 11/19/19 16:08 104 H 99 11/19/19 16:07 112 H 138/87 11/19/19 16:03 116 H 99 11/19/19 15:58 105 H 98 11/19/19 15:53 102 H 99 11/19/19 15:52 105 H 130/71 11/19/19 15:48 105 H 99 11/19/19 15:43 99 H 99 11/19/19 15:38 97 H 98 11/19/19 15:37 105 H 124/71 11/19/19 15:33 98.0 F 110 H 99 11/19/19 15:28 113 H 99 11/19/19 15:23 107 H 133/78 100 11/19/19 15:18 120 H 100 11/19/19 15:13 96 H 100 11/19/19 15:08 97 H 100 11/19/19 15:07 96 H 131/75 11/19/19 15:03 94 H 100 11/19/19 14:58 95 H 100 11/19/19 14:53 97 H 100 11/19/19 14:52 92 H 129/76 11/19/19 14:48 97 H 100 11/19/19 14:43 94 H 100 11/19/19 14:38 105 H 100 11/19/19 14:33 95 H 99 11/19/19 14:28 100 H 99 11/19/19 14:23 94 H 100 11/19/19 14:22 93 H 132/81 11/19/19 14:18 98 H 100 11/19/19 14:13 97 H 100 11/19/19 14:08 95 H 127/71 98 11/19/19 14:03 99 H 100 11/19/19 13:58 93 H 99 11/19/19 13:53 96 H 131/78 100 11/19/19 13:48 98 H 100 11/19/19 13:43 97 H 100 11/19/19 13:38 100 H 131/76 100 11/19/19 13:33 108 H 100 11/19/19 13:28 108 H 100 11/19/19 13:23 100 H 100 11/19/19 13:22 100 H 128/76 11/19/19 13:18 97 H 100 11/19/19 13:13 101 H 100 11/19/19 13:08 104 H 100 11/19/19 13:07 105 H 128/73 11/19/19 13:03 114 H 98 11/19/19 12:59 97 H 37 L 11/19/19 12:58 112 H 99 11/19/19 12:54 102 H 141/71 11/19/19 12:53 102 H 100 11/19/19 12:48 91 H 99 11/19/19 12:43 109 H 90 11/19/19 12:38 100 H 99 11/19/19 12:33 112 H 99 11/19/19 12:28 100 H 99 11/19/19 12:19 105 H 83 L 11/19/19 12:17 107 H 100 11/19/19 12:12 97 H 100 11/19/19 12:09 100 H 90 11/19/19 12:07 105 H 128/71 99 11/19/19 12:02 107 H 99 11/19/19 11:57 99 H 99 11/19/19 11:53 96 H 143/70 11/19/19 11:52 98 H 100 11/19/19 11:47 101 H 100 11/19/19 11:42 99 H 99 11/19/19 11:37 100 H 133/69 11/19/19 11:36 97 H 99 11/19/19 11:31 101 H 99 11/19/19 11:26 111 H 98 11/19/19 11:22 105 H 146/83 11/19/19 11:21 102 H 99 11/19/19 11:16 76 76 L 11/19/19 11:13 108 H 87 11/19/19 11:11 110 H 100 11/19/19 11:08 94 H 140/89 11/19/19 11:06 91 H 100 11/19/19 11:01 94 H 100 11/19/19 10:56 91 H 100 11/19/19 10:53 93 H 140/82 11/19/19 10:51 99 H 100 11/19/19 10:46 104 H 100 11/19/19 10:41 107 H 100 11/19/19 10:38 110 H 161/91 11/19/19 10:36 109 H 89 11/19/19 10:33 34 L 85 11/19/19 10:31 103 H 100 11/19/19 10:26 100 H 100 11/19/19 10:23 105 H 166/93 11/19/19 10:21 114 H 100 11/19/19 10:16 112 H 100 11/19/19 10:11 96 H 100 11/19/19 10:07 99 H 145/91 11/19/19 10:06 98 H 100 11/19/19 10:01 109 H 100 11/19/19 09:57 125 H 81 L 11/19/19 09:56 114 H 100 11/19/19 09:53 102 H 143/91 11/19/19 09:51 96 H 99 11/19/19 09:46 104 H 100 11/19/19 09:41 108 H 100 11/19/19 09:38 100 H 150/86 11/19/19 09:36 99 H 100 11/19/19 09:31 123 H 99 11/19/19 09:26 97.8 F 100 H 18 130/75 99 11/19/19 09:22 92 H 130/75 11/19/19 09:21 94 H 100 11/19/19 09:16 96 H 97 11/19/19 09:11 95 H 99 11/19/19 09:09 95 H 141/82 11/19/19 09:06 98 H 100 11/19/19 09:01 101 H 100 11/19/19 08:56 120 H 95 11/19/19 08:53 111 H 138/85 11/19/19 08:51 115 H 99 11/19/19 08:46 109 H 100 11/19/19 08:43 117 H 91 11/19/19 08:41 113 H 95 11/19/19 08:38 103 H 145/92 11/19/19 08:22 99 H 133/77 Intake and Output 11/19/19 11/20/19 11/20/19 22:59 06:59 14:59 Intake Total 1533.9 Output Total 875 750 300 Balance 658.9 -750 -300 Intake: IV 1533.9 PITOCin/NS 30 UNIT/500ML 33.9 30 units In 500 ml @ 2 MILLIUNITS/MIN 2 mls/hr IV TITR IAN Rx#:[id number] Output: Urine 875 750 300 Indwelling Catheter 650 750 300 Other: Total, Output Amount 200 150 300 - Exam Breasts: Present: deferred Abdomen: Present: soft, distention (mild ) Uterus: Present: fundal height at umbilicus Extremities: Present: edema (trace) Incision: Present: dressed - Labs Labs: Abnormal lab results 11/19/19 11/19/19 11/19/19 Range/Units 12:39 23:49 23:49 WBC 19.2 H (4.5-11.0) K/mm3 RBC 3.56 L (3.65-5.03) M/mm3 Hgb 9.1 L (10.1-14.3) gm/dl Hct 28.9 L (30.3-42.9) % MCH 26 L (28-32) pg Lymph % (Auto) 8.5 L (13.4-35.0) % [place] # 1.0 H (0.0-0.8) K/mm3 Seg Neutrophils % 85.9 H (40.0-70.0) % Seg Neutrophils # 16.5 H (1.8-7.7) K/mm3 Magnesium 7.00 H 6.50 H (1.7-2.3) mg/dL
[2019-11-20 09:08] LABS: Hematocrit 28.2 % (30.3-42.9); Hemoglobin 8.8 gm/dl (10.1-14.3)
[2019-11-20] MEDS: MAGNESIUM SULFATE 40GM/1000ML 40 GM/1,000 ML BAG IV SCH (11:07)
[2019-11-20] MEDS: LACTATED RINGERS 1,000 ML IV SCH (11:58)
[2019-11-21] MEDS: IBUPROFEN 800 MG TAB PO PRN ×2 (05:14→17:01)
--- NOTE | 2019-11-21 10:41 | Progress Note ---
Assessment and Plan A: POD2 s/p LTCS Preeclampsia with severe features s/p mag sulfate x24 hours pp Acute on chronic anemia due to and blood loss Vital signs stable P: Continue current antihypertensive therapy Ferrous sulfate supplementation Anticipate d/c to home on POD3 Subjective - Subjective Date of service: 11/21/19 Principal diagnosis: s/p LTCS, preeclampsia with severe features Interval history: POD2 s/p primary LTCS, preeclampsia s/p mag sulfate. Blood pressure well- controlled on current Labetalol regimen of 400mg BID. Patient reports: appetite normal, voiding normally, pain well controlled, flatus, ambulating normally [place]: doing well, bottle feeding (difficulty latching, suspect tongue tie) Objective - Vital Signs Latest vital signs: Vital Signs Temp Pulse Resp BP BP Pulse Ox 11/21/19 08:35 98.0 F 102 H 18 152/87 100 11/21/19 05:14 18 11/21/19 00:00 92 H 136/76 11/20/19 21:46 97 H 133/79 11/20/19 21:22 98.3 F 93 H 20 133/79 98 11/20/19 19:35 92 H 136/91 11/20/19 19:24 88 97 11/20/19 19:20 87 132/72 11/20/19 19:19 62 97 11/20/19 19:14 84 100 11/20/19 19:09 85 98 11/20/19 19:04 94 H 96 11/20/19 19:01 96 H 91 11/20/19 18:57 97 H 99 11/20/19 18:52 101 H 100 11/20/19 18:49 90 132/72 11/20/19 18:47 90 99 11/20/19 18:42 87 99 11/20/19 18:37 101 H 98 11/20/19 18:35 101 H 145/70 11/20/19 18:20 97 H 154/86 11/20/19 18:14 101 H 100 11/20/19 18:09 91 H 100 11/20/19 18:07 92 H 149/92 11/20/19 17:51 90 100 11/20/19 17:50 106 H 160/87 92 11/20/19 17:47 99 H 177/107 11/20/19 17:46 98 H 100 11/20/19 17:41 98 H 100 11/20/19 17:36 99 H 98 11/20/19 17:34 93 H 177/107 11/20/19 17:19 87 175/100 11/20/19 17:04 88 168/98 11/20/19 16:49 92 H 161/103 11/20/19 16:45 98 H 99 11/20/19 16:40 95 H 100 11/20/19 16:35 98 H 100 11/20/19 16:34 96 H 157/103 11/20/19 16:30 95 H 99 11/20/19 16:25 97 H 99 11/20/19 16:20 90 154/96 11/20/19 16:15 93 H 100 11/20/19 16:10 91 H 100 11/20/19 16:05 91 H 100 11/20/19 16:04 91 H 152/100 11/20/19 16:00 98.3 F 97 H 18 152/100 100 11/20/19 15:55 90 100 11/20/19 15:50 98 H 157/96 100 11/20/19 15:45 87 100 11/20/19 15:40 88 100 11/20/19 15:37 89 78 L 11/20/19 15:35 90 92 11/20/19 15:34 87 133/83 11/20/19 15:32 91 H 88 11/20/19 15:30 88 98 11/20/19 15:25 87 100 11/20/19 15:20 88 100 11/20/19 15:19 85 138/88 11/20/19 15:15 84 96 11/20/19 15:10 93 H 97 11/20/19 15:05 80 98 11/20/19 15:04 90 137/87 92 11/20/19 15:00 91 H 99 11/20/19 14:55 88 100 11/20/19 14:50 87 99 11/20/19 14:49 85 136/84 11/20/19 14:45 86 99 11/20/19 14:40 84 100 11/20/19 14:35 80 99 11/20/19 14:34 85 133/79 11/20/19 14:30 89 99 11/20/19 14:25 89 100 11/20/19 14:20 86 135/76 99 11/20/19 14:14 96 H 91 11/20/19 14:11 67 87 11/20/19 14:09 86 100 11/20/19 14:05 95 H 90 11/20/19 14:04 92 H 156/95 98 11/20/19 13:59 93 H 100 11/20/19 13:54 95 H 100 11/20/19 13:49 85 154/92 99 11/20/19 13:44 93 H 100 11/20/19 13:42 101 H 68 L 11/20/19 13:39 83 100 11/20/19 13:34 92 H 146/93 99 11/20/19 13:29 94 H 98 11/20/19 13:24 85 98 11/20/19 13:19 90 141/89 97 11/20/19 13:14 89 100 11/20/19 13:09 92 H 99 11/20/19 13:04 93 H 147/98 97 11/20/19 13:03 97 H 67 L 11/20/19 12:59 92 H 98 11/20/19 12:54 94 H 98 11/20/19 12:50 97 H 58 L 11/20/19 12:49 89 139/91 98 11/20/19 12:44 90 100 11/20/19 12:35 91 H 100 11/20/19 12:34 90 136/87 11/20/19 12:30 88 98 11/20/19 12:25 88 95 11/20/19 12:21 92 H 94 11/20/19 12:20 88 95 11/20/19 12:19 87 134/84 11/20/19 12:15 87 98 11/20/19 12:10 83 98 11/20/19 12:05 87 97 11/20/19 12:04 86 138/83 11/20/19 12:00 87 97 11/20/19 11:55 85 100 11/20/19 11:53 96 H 90 11/20/19 11:50 88 97 11/20/19 11:49 85 139/82 11/20/19 11:45 89 97 11/20/19 11:40 87 97 11/20/19 11:35 85 99 11/20/19 11:34 82 145/89 11/20/19 11:30 98.2 F 86 18 139/86 98 11/20/19 11:25 89 98 11/20/19 11:20 89 98 11/20/19 11:19 87 139/86 11/20/19 11:15 91 H 98 11/20/19 11:10 88 98 11/20/19 11:05 87 100 11/20/19 11:04 89 146/88 11/20/19 11:00 87 97 11/20/19 10:55 86 99 11/20/19 10:50 90 97 11/20/19 10:49 89 143/84 11/20/19 10:44 92 H 100 11/20/19 10:39 95 H 98 Intake and Output 11/20/19 11/21/19 11/21/19 23:59 07:59 15:59 Intake Total 820 540 240 Output Total 701 1200 Balance 119 -660 240 Intake: IV 400 MAGNESIUM SULFATE 40GM/ 400 1000ML 40 gm In 1,000 ml @ 2 GM/HR 50 mls/hr IV DIRECT IAN Rx#:[id number] Oral 420 540 240 Output: Urine 700 1200 Indwelling Catheter 350 Void 350 1200 Pad Count 1 Other: Total, Intake Amount 200 240 240 Total, Output Amount 350 500 - Exam Breasts: Present: normal Lungs: Present: Normal air movement Abdomen: Present: soft. Absent: distention Uterus: Present: firm, fundal height below umbilicus. Absent: bogginess Extremities: Present: normal - Labs Labs: Abnormal lab results 11/20/19 11/20/19 Range/Units 12:39 17:55 Magnesium 6.50 H 6.90 H (1.7-2.3) mg/dL
[2019-11-21] MEDS: FERROUS SULFATE 325 MG TAB PO SCH ×3 (17:01→23:50)
[2019-11-21] MEDS: MAGNESIUM HYDROXIDE (MOM) ORAL LIQD UDC PO SCH ×2 (17:01→18:26)
[2019-11-22] MEDS: IBUPROFEN 800 MG TAB PO PRN (05:32)
[2019-11-22] MEDS ORDERED: DIPHtheria,PERTUSSIS(ACELL),TETANUS VACCINE/PF 0.5 ML VIAL IM ONE (08:00)
[2019-11-22] MEDS: FERROUS SULFATE 325 MG TAB PO SCH (09:50)
--- NOTE | 2019-11-22 10:31 | Progress Note ---
Assessment and Plan A: POD3 s/p LTCS Preeclampsia with severe features s/p mag sulfate x24 hours pp Acute on chronic anemia due to and blood loss Labile BP Afebrile P: Add Procardia XL 30mg qday Ferrous sulfate supplementation Closely monitor clinical status Subjective - Subjective Date of service: 11/22/19 Principal diagnosis: Preeclampsia with severe features, IUP at term Interval history: POD3 s/p primary LTCS, preeclampsia s/p mag sulfate. Blood pressure poorly controlled on current Labetalol regimen of 400mg BID. Patient reports: appetite normal, voiding normally, pain well controlled, flatus, ambulating normally : doing well, nursing well Objective - Vital Signs Latest vital signs: Vital Signs Temp Pulse Resp BP BP Pulse Ox 11/22/19 10:22 94 H 153/84 98 11/22/19 09:49 99 H 165/86 99 11/22/19 07:26 98.4 F 79 20 164/87 98 11/21/19 23:51 98.1 F 90 20 147/87 147/87 98 11/21/19 21:20 88 133/78 11/21/19 15:59 98.6 F 97 H 20 147/84 96 Intake and Output 11/21/19 11/22/19 11/22/19 23:59 07:59 15:59 Intake Total 600 240 Balance 600 240 Intake: Oral 600 240 Other: Total, Intake Amount 240 240 # Voids Void 1 1 - Exam Lungs: Present: Normal air movement Abdomen: Present: soft. Absent: distention Uterus: Present: firm, fundal height below umbilicus. Absent: bogginess Extremities: Present: normal Incision: Present: normal, dry, intact
[2019-11-22] MEDS ORDERED: NIFEdipine XL 30 MG TAB PO SCH (11:00)
[2019-11-22] MEDS: MAGNESIUM HYDROXIDE (MOM) ORAL LIQD UDC PO SCH (13:06)
--- NOTE | 2019-11-22 14:40 | Discharge Summary ---
Providers - Providers Date of Admission: 11/18/19 13:09 Date of discharge: 11/22/19 Attending physician: SOHEILA CRUZ Primary care physician: SOHEILA CRUZ Hospitalization Reason for admission: induction of labor (for preeclampsia), IUP at term Delivery: Procedure: primary low transverse Incision: normal, dry, intact Other procedures: none complications: other (Labile BP) Discharge diagnosis: IUP at term delivered Hospital course: Pt presented for IOL secondary to preeclampsia. She was found to have severe features and received mag sulfate infusion intrapartum and 24 hours . She underwent a primary section for arrest of dilatation. Labile blood pressure was controlled with Labetalol 400mg BID and Procardia XL 30mg qday. She met discharge criteria on POD3 and [facility]. Condition at discharge: Good Disposition: DC-01 TO HOME OR SELFCARE Plan - Discharge Medications Prescriptions: Ferrous Sulfate [Feosol 325 MG tab] 325 mg PO BID #60 tablet labetaloL [Labetalol 200mg TAB] 400 mg PO BID #120 tablet Ibuprofen [Motrin] 600 mg PO Q6H PRN #60 tablet PRN Reason: Pain oxyCODONE /ACETAMINOPHEN [Percocet 5/325] 1 tab PO Q6HR PRN #40 tablet PRN Reason: Pain NIFEdipine XL [Procardia Xl] 30 mg PO QDAY #30 tablet - Provider Discharge Summary Activity: routine, no sex for 6 weeks, no heavy lifting 4 weeks, no strenuous exercise Diet: routine Instructions: routine Additional instructions: [] Smoking cessation referral if applicable(refer to patient education folder for contact #) [] Refer to [facility] Booklet Call your doctor immediately for: * Fever > 100.5 * Heavy vaginal bleeding ( >1 pad per hour) * Severe persistent headache * Shortness of breath * Reddened, hot, painful area to leg or breast * Drainage or odor from incision. * Keep incision clean and dry at all times and follow doctor's instructions regarding bathing/showering - Follow up plan Follow up: SOHEILA CRUZ MD [Primary Care Provider] - 7 Days
[2019-11-22 16:30] VITALS: BP 154/98
== END 2019-11-22 16:45 | disposition home or self-care (01) | DRG 765 ==
LOC: TRG 13:08 → APU 13:08 → LD 13:08 → APU 13:09 → LD 13:09 → TRG 13:09 → OB 11-20 21:38
PROVIDERS: ADMIT Obstetrics & Gynecology; ATTEND Obstetrics & Gynecology
PROC: 10D00Z1 Extraction of Products of Conception, Low, Open Approach (ICD-10-PCS; principal; 2019-11-19)
PROC: 10H073Z Insertion of Monitoring Electrode into Products of Conception, Via Natural or Artificial Opening (ICD-10-PCS; 2019-11-19)
PROC: 10H07YZ Insertion of Other Device into Products of Conception, Via Natural or Artificial Opening (ICD-10-PCS; 2019-11-19)
PROC: 3E0234Z Introduction of Serum, Toxoid and Vaccine into Muscle, Percutaneous Approach (ICD-10-PCS; 2019-11-22)
DX: O14.14 Severe pre-eclampsia complicating childbirth (principal); D62 Acute posthemorrhagic anemia; O99.834 Other infection carrier state complicating childbirth; Z3A.38 38 weeks gestation of pregnancy; Z37.0 Single live birth; Z23 Encounter for immunization; Z83.3 Family history of diabetes mellitus; O10.92 Unspecified pre-existing hypertension complicating childbirth; O62.1 Secondary uterine inertia; O99.214 Obesity complicating childbirth; E66.01 Morbid (severe) obesity due to excess calories
CPT/HCPCS: 36415; 76815; 80048; 83735; 84550; 85014; 85018; 85025; 85027; 86850; 86900; 86901; 90715; 93005; G0378; J0360; J0595; J0690; J1885; J2270; J2405; J2590; J2765; J3475; J3490; J7120; Q0177

== ENCOUNTER 2020-12-28 05:55 | Day surgery (SDC) | payer OTHER ==
--- NOTE | 2020-12-27 21:27 | History and Physical Report ---
History of Present Illness Date of examination: 12/27/20 Chief complaint: pelvic pain, bilateral ovarian cysts History of present illness: The patient is a 25 year old [place] female who presents for surgical management of pelvic pain and bilateral ovarian cysts (suspected to be dermoid cysts) that have been present since at least May 2019. Past History Past Medical History: no pertinent history Past Surgical History: section [employer] History: other (ovarian cysts per HPI) Family/Genetic History: diabetes, cancer Social history: no significant social history, - Obstetrical History : 1 Para: 1 Hx # Term Pregnancies: 1 Number of Pregnancies: 0 Spontaneous Abortions: 0 Induced : 0 Number of Living Children: 1 Medications and Allergies Allergies Allergy/AdvReac Type Severity Reaction Status Date / Time No Known Allergies Allergy Verified 12/14/20 15:46 Home Medications Medication Instructions Recorded Confirmed Last Taken Type No Known Home Medications [No 10/04/20 12/14/20 Unknown History Reported Home Medications] Active Meds: Active Medications Acetaminophen (Acetaminophen 500 Mg Tab) 1,000 mg PO PREOP IAN Celecoxib (Celecoxib 200 Mg Cap) 200 mg PO PREOP NR Stop: 12/28/20 23:59 Gabapentin (Gabapentin 300 Mg Cap) 300 mg PO PREOP NR Stop: 12/28/20 23:59 Lactated Ringer's (Lactated Ringers) 1,000 mls @ 100 mls/hr IV DIRECT IAN Stop: 12/28/20 23:59 Midazolam HCl (Midazolam 2 Mg/2 Ml Inj) 2 mg IV PREOP NR Stop: 12/28/20 23:59 Scopolamine (Scopolamine Transdermal Patch 72 Hr) 1 each TD PREOP NR Stop: 12/28/20 23:59 Review of Systems All systems: negative - Physical Exam Breasts: Positive: deferred Cardiovascular: Regular rate Lungs: Positive: Clear to auscultation Abdomen: Positive: soft (obese) Extremities: Positive: normal Results All other labs normal. Assessment and Plan A: Pelvic Pain Bilateral ovarian cysts Obesity P: Proceed with Laparoscopic robotic-assisted bilateral ovarian cystectomy and other procedures, possible exploratory laparotomy
[2020-12-28] MEDS ORDERED: ACETAMINOPHEN 500 MG TAB PO SCH (06:00)
[2020-12-28] MEDS ORDERED: SCOPOLAMINE TRANSDERMAL PATCH 72 HR TD NR (06:00)
[2020-12-28] MEDS ORDERED: GABAPENTIN 300 MG CAP PO NR (06:00)
[2020-12-28] MEDS ORDERED: MIDAZOLAM 2 MG/2 ML INJ IV NR (06:00)
[2020-12-28] MEDS ORDERED: CELECOXIB 200 MG CAP PO NR (06:00)
[2020-12-28] MEDS ORDERED: LACTATED RINGERS 1,000 ML IV SCH (06:00)
[2020-12-28] MEDS ORDERED: BACTERIOSTATIC SODIUM CHLORIDE 0.9% 30 ML VIAL INFILTRATI ONE (06:50)
[2020-12-28] MEDS ORDERED: ceFAZolin/Water 2 GM/20 ML 2 GM/20 ML SYRINGE IV NR (07:00)
[2020-12-28] MEDS ORDERED: LIDOCAINE PF 100 MG/5 ML (CARDIAC SYRINGE) IV ONE ×2 (07:03→07:04)
[2020-12-28] MEDS ORDERED: ROCURONIUM 50 MG/5 ML INJ IV ONE ×2 (07:03→09:12)
[2020-12-28] MEDS ORDERED: propofoL 200 MG/20 ML VIAL IV ONE (07:04)
[2020-12-28] MEDS ORDERED: ONDANSETRON 4 MG/2 ML INJ ONE (07:05)
[2020-12-28] MEDS ORDERED: fentaNYL 100 MCG/2 ML INJ ONE ×2 (07:10→08:22)
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
--- NOTE | 2020-12-28 07:13 | Anesthesia Day of Surgery ---
Anesthesia Day of Surgery - Day of Surgery Patient Examined: Yes Patient H&P Reviewed: Yes Patient is NPO: Yes
[2020-12-28 07:27] LABS: Hematocrit 35.7 % (30.3-42.9); Hemoglobin 11.7 gm/dl (10.1-14.3); Mean Corpuscular HGB Conc 33 % (30-34); Mean Corpuscular Volume 81 fl (79-97); Platelet Count 252 K/mm3 (140-440)
[2020-12-28] MEDS ORDERED: BUPIVACAINE/PF (0.5%) 5 MG/1 ML 30 ML VIAL INFILTRATI ONE ×2 (07:33→09:09)
[2020-12-28] MEDS ORDERED: HYDROmorphone 1 MG/1 ML INJ ONE (08:03)
[2020-12-28] MEDS ORDERED: SODIUM CHLORIDE 0.9% IRR 1,500 ML BOTTLE IR ONE (09:10)
[2020-12-28] MEDS ORDERED: SODIUM CHLORIDE 0.9% IRRIG SOLN 2000 ML IR ONE (09:10)
[2020-12-28] MEDS ORDERED: GLYCOPYRROLATE 0.4 MG/2 ML INJ ONE (10:08)
[2020-12-28] MEDS ORDERED: NEOSTIGMINE 10MG/10 ML INJ MDV ONE (10:08)
[2020-12-28] MEDS ORDERED: SILVER NITRATE APPLICATOR 1 EA TP ONE ×2 (10:35)
--- NOTE | 2020-12-28 11:03 | Operative Report ---
Operative Report Operative Report: Date of Surgery: December 28, 2020 Preoperative Diagnoses: 1) Pelvic Pain 2) Bilateral Adnexal Masses 3) Obesity Postoperative Diagnoses: Same Procedure: 1) Laparoscopic Robotic-assisted Bilateral Ovarian Cystectomy 2) Lysis of Adhesions Surgeon: Yajaira Marquez MD Axle And Frame Mechanic: Jacquelyn Rahman MD Anesthesia: General Endotracheal Anesthesia Findings: 1) ~10 cm right multiloculated ovarian cyst containing fat and hair 2) ~ 5 cm left ovarian cyst containing fat and hair 3) Normal appearing uterus and fallopian tubes 4) Omental adhesion to the peritoneum EBL: 35 mL Specimen: Bilateral ovarian cysts to pathology Drains: None Complications: None Disposition: Stable to PACU Indication for Procedure: The patient is a 25 year old -[place] female who presents for surgical management of pelvic pain and bilateral ovarian cysts. Procedure In Detail: After the benefits, risks, alternatives and complications were explained to the patient she gave informed consent for the procedure. She was then taken to the operating room with her IV noted to be running well and placed in the dorsal supine position. SCDs were noted to be in place and functioning. General endotracheal anesthesia was then induced without difficulty. The patient was prepped and draped in a normal sterile fashion. A timeout was performed. A schmidt catheter was placed to drain the bladder. A bivalve speculum was placed in the patient's vagina and a single-tooth tenaculum placed on the anterior lip of the cervix. The uterus was sounded with the uterine sound to 8 cm. A [employer] care uterine manipulator was placed, and the tenaculum and bivalve speculum were then removed. The surgeon's gloves were changed. Attention was then turned to the abdominal entry. A 12 mm supraumbilical skin incision was made with the knife. A Veress needle was placed and peritoneal entry was confirmed with a saline drop test. The peritoneum was insufflated with CO2 gas to a pressure of 15 mm Hg. The 12 mm trocar was then placed under direct visualization. An 8 mm robotic trocar was placed 10 cm to the left of the supraumbilical incision. Another 8 mm robotic trocar was placed 10 cm to the right of the supraumbilical incision. An additional 12 mm right lateral trocar was then placed as the accessory port. The two 12 mm trocar sites were reapproximated with with 0-Vicryl suture using the Ayan Ochoa device, then the trocars were replaced under direct visualization. The patient was then placed in steep Trendelenburg. The da Kala robot was then engaged. A fenestrated forcep was placed in arm 2 and a monopolar scissors were placed in arm 1. Anatomic survey was performed, a small omental adhesion noted, as well as bilateral ovarian cysts, a normal appearing uterus and normal appearing fallopian tubes. The surgeon then transferred to the surgical console. The omental adhesion was cauterized with the fenestrated forceps, and transected with the monopolar scissors. Next, attention was first turned to the right ovarian cyst. An incision was created along the length of the ovary with the monopolar scissors, with egress of thick yellow fluid, adipose tissue, and hair. A combination of sharp and blunt dissection were used to remove as much of the cyst wall as deemed possible. The cyst and its contents were placed in an EndoCatch bag, removed through the 12 mm port in the RLQ, and sent to pathology. Attention was then turned to the left cyst. An incision was made along the length of the ovary egress of yellow fluid and a hair. A combination of sharp and blunt dissection were used to remove the cyst wall and a solid nodule inside the cyst. The nodule and cyst were placed in a second EndoCatch bag, removed through the RLQ 12 mm port, and sent to pathology. Cautery was used to obtain hemostasis of the remaining ovarian tissue bilaterally. The abdomen was then irrigated, and hemostasis was again noted. Surgical powder was placed over the remaining ovarian tissue bilaterally. All instruments were removed atraumatically under direct visualization. The da Kala robot was undocked. The insufflation was released and the trocars were removed atraumatically. The incisions were infiltrated with a dilute marcaine solution, reapproximated with 4-0 Monocryl in a subcuticular fashion and covered with skin glue. The [employer] uterine manipulator and schmidt catheter were removed. The patient was then extubated and taken to the recovery room in stable condition. All lap and needle counts were correct x2.
--- NOTE | 2020-12-28 11:07 | Short Stay Summary ---
Short Stay Documentation Date of service: 12/28/20 - History H&P: dictated Social history: no significant social history, - Allergies and Medications Current Medications: Allergies No Known Allergies Allergy (Verified 12/14/20 15:46) Home Medications Medication Instructions Recorded Confirmed Last Taken Type Ibuprofen [Motrin] 800 mg PO Q8HR PRN #30 tablet 12/28/20 Unknown Rx oxyCODONE /ACETAMINOPHEN [Percocet 1 tab PO Q6HR PRN #40 tablet 12/28/20 Unknown Rx 5/325] Active Medications Acetaminophen (Acetaminophen 500 Mg Tab) 1,000 mg PO PREOP IAN Last Admin: 12/28/20 07:14 Dose: 1,000 mg Documented by: Celecoxib (Celecoxib 200 Mg Cap) 200 mg PO PREOP NR Stop: 12/28/20 23:59 Last Admin: 12/28/20 07:13 Dose: 200 mg Documented by: Gabapentin (Gabapentin 300 Mg Cap) 300 mg PO PREOP NR Stop: 12/28/20 23:59 Last Admin: 12/28/20 07:14 Dose: 300 mg Documented by: Lactated Ringer's (Lactated Ringers) 1,000 mls @ 100 mls/hr IV DIRECT IAN Stop: 12/28/20 23:59 Last Admin: 12/28/20 07:12 Dose: 100 mls/hr Documented by: Cefazolin Sodium (Ancef/Sterile Water 2 Gm/20 Ml) 2 gm in 20 mls @ 80 mls/hr IV PREOP NR; Protocol Stop: 12/28/20 23:59 Midazolam HCl (Midazolam 2 Mg/2 Ml Inj) 2 mg IV PREOP NR Stop: 12/28/20 23:59 Last Admin: 12/28/20 07:24 Dose: 2 mg Documented by: Scopolamine (Scopolamine Transdermal Patch 72 Hr) 1 each TD PREOP NR Stop: 12/28/20 23:59 Last Admin: 12/28/20 07:13 Dose: 1 each Documented by: - Physical exam Breasts: deferred - Brief post op/procedure progress note Date of procedure: 12/28/20 Pre-op diagnosis: Bilateral Adnexal Masses Post-op diagnosis: same Procedure: Laparoscopic robotic-assisted bilateral ovarian cystectomy Lysis of Adhesions Anesthesia: GETA Findings: 1) ~10 cm right multiloculated ovarian cyst containing fat and hair 2) ~ 5 cm left ovarian cyst containing fat and hair 3) Normal appearing uterus and fallopian tubes 4) Omental adhesion to the peritoneum Surgeon: MICKEY MARQUEZ Vp Corporate Partnerships: SOHEILA CRUZ Estimated blood loss: minimal (35 mL) Pathology: list (left and right ovarian cyst contents to pathology) Specimen disposition: to lab Condition: stable - Hospital course Hospital course: Pt underwent laparoscopic - Disposition Condition at discharge: Stable Disposition: 01 HOME / SELF CARE / HOMELESS - Discharge Diagnoses (1) Adnexal mass Status: Acute (2) Obesity Status: Acute Qualifiers: Obesity type: unspecified obesity type Obesity classification: adult class 2 (BMI 35 - 39.9) Serious obesity comorbidity presence: unspecified whether serious comorbidity present Body mass index: BMI 39.0-39.9 Qualified Code(s): E66.9 - Obesity, unspecified; Z68.39 - Body mass index [BMI] 39.0-39.9, adult (3) Pelvic pain Status: Acute Short Stay Discharge Plan Activity: other (Nothing per vagina, no tub baths, no intercourse for four weeks ) Weight Bearing Status: Full Weight Bearing Diet: regular Wound: keep clean and dry Additional Instructions: Where binder as directed by your doctor. Call Dr Marquez for all questions and concerns and for follow up appointment if not already made. Follow up with: RADHA BAIRES MD [Primary Care Provider] - 7 Days MICKEY MARQUEZ MD [Staff Physician] - 7 Days Forms: Outpatient Surgery DC Inst. Prescriptions: Ibuprofen [Motrin] 800 mg PO Q8HR PRN #30 tablet PRN Reason: Pain, Moderate (4-6) oxyCODONE /ACETAMINOPHEN [Percocet 5/325] 1 tab PO Q6HR PRN #40 tablet PRN Reason: Pain
[2020-12-28] MEDS ORDERED: oxyCODONE /ACETAMINOPHEN 5-325MG TAB PO PRN (11:14)
[2020-12-28] MEDS ORDERED: ONDANSETRON 4 MG/2 ML INJ IV PRN (11:14)
[2020-12-28] MEDS: HYDROmorphone 1 MG/1 ML INJ IV PRN ×2 (11:17→11:27)
[2020-12-28 13:04] VITALS: BP 136/78
--- NOTE | 2020-12-28 14:10 | Post Anesthesia Evaluation ---
- Post Anesthesia Evaluation Patient Participated: Yes Airway Patent: Yes Stable Respiratory Function: Yes Nausea/Vomiting: No Temp > 96.8F: Yes Pain Manageable: Yes Adequeate Hydration: Yes Anesthesia Complications: No
== END 2020-12-28 12:50 | disposition home or self-care (01) ==
LOC: OR 05:55
PROVIDERS: ATTEND Obstetrics & Gynecology
DX: N83.202 Unspecified ovarian cyst, left side (principal); N83.201 Unspecified ovarian cyst, right side; R10.2 Pelvic and perineal pain; I10 Essential (primary) hypertension; E66.9 Obesity, unspecified; K21.9 Gastro-esophageal reflux disease without esophagitis; Z79.899 Other long term (current) drug therapy; Z98.890 Other specified postprocedural states; Z68.39 Body mass index [BMI] 39.0-39.9, adult
CPT/HCPCS: 36415; 58662; 81025; 85027; 86850; 86900; 86901; 88305; 88311; A4217; J0690; J1170; J2001; J2250; J2405; J2704; J2710; J3010; J7120; S2900